=== PATIENT | female | born 1945 | race Caucasian/White ===

== ENCOUNTER → 2016-08-18 | Outpatient (CLI) | payer MEDICARE, BC ==
--- NOTE | ~2016-08-18 | US85 ---
[facility] A Service of [facility] & [facility] RADIOLOGY TEXT RESULTS PATIENT: JEFFREY ORTIZ LOCATION: CNIV : 45 UNIT #: [id number] AGE: [address]: Saulo Pavon MD SEX: F ORDER DR: [id number] [facility] [address] [place], [place] [address] [id number] O MR#: [id number] #: [id number] NAME: JEFFREY ORTIZ : 1945 SEX: F STUDY DATE/TIME: 08/18/2016 12:41 UNIT: CNIV ROOM: STUDY DESCRIPTION: LE Veins Unilat or Ltd Stdy Attending Physician: James Pavon M.D. Referring Physician: James Pavon M.D. Ordering Physician: James Pavon M.D. Primary Care Physician: Generic Doctor Not In System MEDICAL IMAGING REPORT This report is preliminary unless electronic signature is present EXAM Left lower extremity venous duplex CLINICAL HISTORY Left lower extremity pain and swelling thigh, calf and knee x 6 weeks, and history of DVT left upper extremity and recent left lower leg stripping over the foot. FINDINGS There is phasic spontaneous flow with respiration seen over the left common femoral, deep femoral, femoral, popliteal, anterior and posterior tibial, peroneal, and saphenous veins. There is compressibility of the vein lumen of all the aforementioned vessels. There is a Culp's cyst noted in the left popliteal fossa measuring 2.0 x 0.5 cm. The is also an area that is palpable in the left mid thigh which appears to have mixed density, maybe suggestive of old hematoma. IMPRESSION 1. There is no evidence of a DVT of the left lower extremity on today's exam. 2. Incidental finding of a left Culp's cyst. 3. Palpable area of the left mid thigh, of unknown etiology, possible new, possible old hematoma. Dictated by... Jai Pickett M.D. THIS IS AN ELECTRONICALLY VERIFIED REPORT Jai Pickett M.D. at 08/19/2016 10:05 AM [facility]. [facility] A Service of [facility] & [facility] RADIOLOGY TEXT RESULTS PATIENT: JEFFREY ORTIZ LOCATION: CNIV : 45 UNIT #: [id number] AGE: [address]: Saulo Pavon MD SEX: F ORDER DR: Ligia TD: 08/18/2016 23:18 JOB #: [id number] MEDICAL IMAGING REPORT Page 1 of 1 COPY
== END | disposition home or self-care (01) ==
LOC: CNIV 12:00
DX: M79.89 Other specified soft tissue disorders (principal); M79.662 Pain in left lower leg
CPT/HCPCS: 93971